=== PATIENT | female | born 2000 | race Caucasian/White ===

== ENCOUNTER → 2021-06-29 13:46 | Outpatient (CLI) | payer BC, SELFPAY ==
--- NOTE | ~2021-06-29 | US_ITS ---
EXAMINATION: US pelvic complete w TV DATE: 06/29/2021 14:13 INDICATION: Irregular periods TECHNIQUE: Multiple transabdominal and endovaginal sonographic images of the pelvis were obtained. COMPARISON: None. FINDINGS: The uterus measures 8.3 x 3.6 x 4.5 cm. The endometrial complex measures 3 mm in thickness. The righ t ovary measures 3.6 x 2.6 x 2.1 cm. The left ovary measures 3.3 x 2.1 x 3.2 cm. There are a few subc entimeter follicles at both ovaries with dominant 1.9 x 1.2 x 2.2 cm anechoic follicle in the right o vary. After flow identified in both ovaries on color Doppler. There is no free fluid in the pelvis. IMPRESSION: 1. Normal pelvic ultrasound. Reviewed, dictated and finalized at location A.
== END ==
PROVIDERS: Visit Provider Internal Medicine Endocrinology, Diabetes & Metabolism
DX: N92.6 Irregular menstruation, unspecified (principal)
CPT/HCPCS: 76830; 76856

== ENCOUNTER 2021-10-22 16:25 | Emergency (ER) | payer BC, SELFPAY ==
[2021-10-22 16:37] VITALS: BP 116/49; PULSE 75; RESP 18; TEMP 37.8; O2SAT 100
--- NOTE | 2021-10-22 16:49 | ED.ABDPAIN ---
HPI - Abdominal Pain General Chief Complaint: Abdominal Pain Stated Complaint: Abdominal Pain Time Seen by Provider: 10/22/21 16:50 Source: patient and RN notes reviewed Mode of arrival: ambulatory Limitations: no limitations History of Present Illness HPI narrative: 21-year-old female with a history of eosinophilic esophagitis, presented for complaints of generalized abdominal pain for 3 days. Pain is constant, sharp and stabbing. She denies associated nausea, vomiting, diarrhea, constipation, hematochezia, urinary complaints, vaginal discharge, fevers or chills. She denies concerns for STD, states she was tested approximately 2 weeks ago. Endorses LMP 2 weeks ago. Follows with GI in [place]. Last endoscopy and esophageal dilatation 09/2021. Related Data Allergies Allergy/AdvReac Type Severity Reaction Status Date / Time Penicillins Allergy Intermediate Rash Verified 10/22/21 16:51 Review of Systems Review of Systems: CONSTITUTIONAL: Denies body aches, fever, chills ENT: Denies rhinorrhea, congestion CARDIOVASCULAR: Denies chest pain, palpitations, or edema. RESPIRATORY: Denies cough or dyspnea. GASTROINTESTINAL: Endorses abdominal pain, Denies hematochezia, melena, hematemesis, nausea, vomiting, diarrhea. GENITOURINARY: Denies dysuria, hematuria, or CVA tenderness. SKIN: Denies rash, itching, or wounds. MUSCULOSKELETAL: Denies back pain, joint pain, or myalgia. NEUROLOGIC: Denies headache, numbness, tingling, or weakness. All systems reviewed & are unremarkable except as noted in HPI and below PMFSH Comments At time of signature, I have reviewed and agree with nursing past medical, surgical, social and family history unless otherwise noted. Please see nursing chart for further information. There is no relevant family history pertinent to the presenting complaint Exam Narrative: GENERAL: Well-appearing EYES: EOMI. Conjunctivae normal. ENT: Mucous membranes pink and moist. CHEST: Clear to auscultation. HEART: Regular rate and rhythm. ABDOMEN: abd soft, nondistended, normal active bowel sounds. diffusely tender abdomen, wincing with palpation across mid abdomen. Pain when laying back. No rebound tenderness or asymmetry EXTREMITIES: No edema. SKIN: Warm, dry, no rash. Capillary refill normal. Normal skin turgor. NEURO: No focal deficits. Alert and oriented x3. PSYCH: Normal affect. Course Course Emergency Course: Patient is aware of diagnosis, understands and agrees to treatment plan. Anticipatory guidance given. Portions of this record may have been created with voice recognition software Level of Care: Express Care Visit Vital Signs Vital signs: Vital Signs Temperature 100.0 F H 10/22/21 16:37 Pulse Rate 75 10/22/21 16:37 Respiratory Rate 18 10/22/21 16:37 Blood Pressure 116/49 L 10/22/21 16:37 Pulse Oximetry 100 10/22/21 16:37 Oxygen Delivery Room Air 10/22/21 16:37 Temperature 100.0 F H 10/22/21 16:37 Pulse Rate 75 10/22/21 16:37 Respiratory Rate 18 10/22/21 16:37 Blood Pressure 116/49 L 10/22/21 16:37 Pulse Oximetry 100 10/22/21 16:37 Oxygen Delivery Room Air 10/22/21 16:37 Transfer Transfered to: [facility] Transportation: Other (private vehicle) Transfer rationale: Pt is agreeable to transfer to ER for further evaluation of abdominal pain. Requests transfer to [facility] via private vehicle. Risks of transportation reviewed with pt including injury, worsening of condition and . v/u. Visitor will be driving pt; Report called to [facility], spoke with Rachana HUNTER, accepting physician. Pt is in stable condition at time of transfer. Advised to remain NPO and go directly to the hospital. MDM - Abdominal Pain MDM Narrative Medical decision making narrative: Urine shows trace blood. Given pt's medical history, current complaints combined with PE, she is advised to go to ER for further evaluation of abdominal pain. Agreeable at this time.
== END 2021-10-22 17:24 | disposition short-term general hospital (02) ==
PROVIDERS: Emergency Provider Nurse Practitioner Family; PCP Student in an Organized Health Care Education/Training Program
DX: R10.9 Unspecified abdominal pain (principal); J45.909 Unspecified asthma, uncomplicated; F41.9 Anxiety disorder, unspecified
CPT/HCPCS: 81003; 99212; G0463

== ENCOUNTER 2021-10-22 17:37 | Emergency (ER) | payer BC, SELFPAY ==
--- NOTE | ~2021-10-22 | US_ITS ---
EXAMINATION: US OB <=14 wk fetus w TV INDICATION: Lower abdominal pain. Beta 194.28. LMP 10/13/2021. TECHNIQUE: Sonography of the pelvis was performed by transabdominal and transvaginal techniques. COMPARISON: None. RESULT: Uterus: - Orientation: Anteverted - Size: 7.6 x 4.1 x 5.6 cm - Myometrium: Homogeneous echogenicity. Endometrial complex measures 1 cm. Gestation: - Intrauterine gestational sac: Not seen Right ovary: - Size : 3.8 x 2.2 x 2.1 cm - Normal sonographic appearance with physiologic follicles and simple cyst. Vascular flow is pr esent. Left ovary: - Size: 4.4 x 3.1 x 2.6 cm - Normal sonographic appearance with physiologic follicles and simple cyst. Vascular flow is pr esent. Pelvis free fluid: Moderate volume free pelvic fluid in the anterior and posterior cul-de-sac as well as the left adnexa and to a lesser extent the right adnexa. Echogenic, somewhat mobile debris in the left adnexa. IMPRESSION: 1. Positive test with no intrauterine gestational sac visualized. Findings represent pregn michele of unknown location. Differential diagnosis includes early normal, failed early, or ectopic pre gnancy. Recommend follow-up serial beta-hCG values. Ultrasound follow-up should be considered as cl inically warranted. 2. Moderate volume pelvic fluid, containing proteinaceous or hemorrhagic debris which could obscure o r possibly represent products of conception, therefore ruptured ectopic is not excluded. Reviewed, dictated and finalized at location K. IMPRESSION: 1. Positive test with no intrauterine gestational sac visualized. Fi ndings represent of unknown location. Differential diagnosis include s early normal, failed early, or ectopic . Recommend follow-up serial beta-hCG values. Ultrasound follow-up should be considered as clinically lucina anted. 2. Moderate volume pelvic fluid, containing proteinaceous or hemorrhagic debris which could obscure or possibly represent products of conception, therefore ru ptured ectopic is not excluded.
[2021-10-22 17:44] VITALS: BP 117/76; PULSE 90; RESP 16; TEMP 36.9; O2SAT 99
[2021-10-22 18:24] LABS: Basophils Absolute Auto 0.1 K/mm3 (0.0-0.1); Basophils Percent Auto 0.7 % (0.2-1.2); Eosinophils Percent Auto 0.5 % (0-4.4); Hematocrit 38.7 % (37.0-47.0); Hemoglobin 12.5 g/dL (12.0-15.0); Immature Granulocyte Absolute 0.01 K/mm3 (0.00-0.031); Immature Granulocyte Percent A 0.1 % (0-0.5); Lymphocytes Absolute Auto 1.69 K/mm3 (0.9-3.2); Lymphocytes Percent Auto 22.6 % (18.3-44.2); Mean Corpuscular HGB Conc 32.3 g/dl (32-36); Mean Corpuscular Hemoglobin 30.3 pg (26-34); Mean Corpuscular Volume 93.7 fl (80-100); Mean Platelet Volume 8.8 fl (7.4-10.4); Monocytes Absolute Auto 0.5 K/mm3 (0.1-0.6); Monocytes Percent Auto 6.6 % (2.6-8.5); Neutrophils Absolute Auto 5.2 K/mm3 (1.3-6.7); Neutrophils Percent Auto 69.5 % (45.5-73.1); Platelet Count Result 248 k/mm3 (150-375); Red Blood Count 4.13 M/mm3 (4.2-5.4); Red Cell Distribution Width 12.3 % (11.5-14.5); White Blood Count 7.5 K/mm3 (4.5-10.0)
[2021-10-22 18:31] LABS: Bacteria Urine Trace /hpf; Mucus Urine Rare /lpf; RBC Urine 0-2 /hpf (0-2); Squamous Epithelial Cell Urine Moderate /hpf (Few); WBC Urine 0-3 /hpf
[2021-10-22 18:33] LABS: Alanine Aminotransferase 12 U/L (6-35); Albumin Level 4.4 g/dL (3.5-5.1); Alkaline Phosphatase 43 U/L (38-126); Anion Gap 4 mmol/L (8-16); Aspartate Amino Transferase 21 U/L (14-36); Bilirubin,Total 0.8 mg/dL (0.2-1.3); Blood Urea Nitrogen 7 mg/dL (7-17); Calcium 8.8 mg/dL (8.4-10.2); Carbon Dioxide 27 mmol/L (22-30); Chloride 104 mmol/L (98-107); Estimated CRCL calculation 111 ml/min; Estimated Glomerular Filt Rate > 60; Glucose 87 mg/dL (65-110); Lipase 38 U/L (23-300); Potassium 3.9 mmol/L (3.4-5.0); Sodium 135 mmol/L (137-145)
[2021-10-22 18:43] LABS: Appearance Urine Clear (Clear); Bilirubin Urine Negative (Negative); Color Urine Yellow (Yellow); Glucose Urine UA Negative (Negative); Ketones Urine 1+ mg/dL (Negative); Leukocyte Esterase Ur Negative LEU/UL (Negative); Nitrate Urine Negative (Negative); Protein Urine Negative (Negative); Urobilinogen Urine 0.2 mg/dL (<2.0); pH Urine 8.5 (5.0-9.0)
[2021-10-22 18:46] LABS: Add Urine Microscopic? YES; Blood Urine Trace (Negative)
[2021-10-22 19:07] VITALS: PULSE 82; RESP 16; O2SAT 100
--- NOTE | 2021-10-22 19:18 | PC.NURSE ---
Assumed care of pt at this time. Pt alert and upright on stretcher, family at bedside
[2021-10-22 19:19] VITALS: BP 111/65
[2021-10-22 19:57] LABS: Beta HCG Quantitative 194.28 mIU/ML
--- NOTE | 2021-10-22 20:22 | ED.ABDPAIN ---
HPI - Abdominal Pain General Chief Complaint: Abdominal Pain Stated Complaint: Abdominal Pain Time Seen by Provider: 10/22/21 19:16 Source: patient Mode of arrival: ambulatory Limitations: no limitations History of Present Illness HPI narrative: This is a 21-year-old female that presents to the emergency department for lower abdominal pain. Present over the last couple of days. Reports the pain is constant and sharp in nature. She was seen at urgent care and sent here for further evaluation. Denies fever, vomiting, dysuria, hematuria. Related Data Home Medications Medication Instructions Recorded Confirmed budesonide 1 mg/2 mL suspension 2 ml inhalation Q4-8H PRN 10/22/21 10/22/21 for nebulization difficulty breathing cetirizine 10 mg tablet (Zyrtec) 10 mg PO DAILY 10/22/21 10/22/21 clonazepam 0.5 mg disintegrating 1 tablet PO DAILY 10/22/21 10/22/21 tablet fluticasone propionate 220 1 inh inhalation DAILY 10/22/21 10/22/21 mcg/actuation HFA aerosol inhaler (Flovent HFA) fluticasone propionate 50 1 ea intranasal DAILY 10/22/21 10/22/21 mcg/actuation nasal spray,suspension hydroxyzine HCl 25 mg tablet 25 tablet PO DAILY 10/22/21 10/22/21 lamotrigine 100 mg disintegrating 1 tablet PO DAILY 10/22/21 10/22/21 tablet lansoprazole 30 mg delayed 1 tablet PO DAILY 10/22/21 10/22/21 release,disintegrating tablet spironolactone 100 mg tablet 1 tablet PO DAILY 10/22/21 10/22/21 sucralfate 100 mg/mL oral 1 ml PO DAILY 10/22/21 10/22/21 suspension Allergies Allergy/AdvReac Type Severity Reaction Status Date / Time Penicillins Allergy Intermediate Rash Verified 10/22/21 17:46 Review of Systems Review of Systems: CONSTITUTIONAL: Denies fever GASTROINTESTINAL: Reports abdominal pain. Denies nausea, vomiting, or diarrhea. GENITOURINARY: Denies dysuria or hematuria. All systems reviewed & are unremarkable except as noted in HPI and below PMFSH Past Medical History Medical History (Updated 10/22/21 @ 23:17 by Sade Camacho PA-C) Eosinophilic esophagitis Social History Social History (Updated 10/22/21 @ 20:24 by Sade Camacho PA-C) Substance use: never Exam Narrative: GENERAL: Well-appearing, well-nourished, and in no acute distress. HEAD: Normocephalic, atraumatic. EYES: EOMI. CHEST: Clear to auscultation. No respiratory distress. No wheezes rales or rhonchi HEART: Regular rate and rhythm. No murmur heard. Normal peripheral pulses. ABDOMEN: Soft, nondistended, normal active bowel sounds. Mild tenderness to palpation about the lower abdomen, without guarding EXTREMITIES: Normal range of motion. No edema. SKIN: Warm, dry, no rash. NEURO: No focal deficits. Alert and oriented x3. PSYCH: Normal mood and affect Course Consultations Consultation #1: Spoke with Dr. Alvarez about patient and workup. Recommends repeat quantitative beta-hCG in 48 hours and follow-up in clinic Date: 10/22/21 Time: 23:13 Vital Signs Vital signs: Vital Signs Temperature 98.4 F 10/22/21 17:44 Pulse Rate 90 10/22/21 17:44 Respiratory Rate 16 10/22/21 17:44 Blood Pressure 117/76 10/22/21 17:44 Pulse Oximetry 99 10/22/21 17:44 Oxygen Delivery Room Air 10/22/21 17:44 Temperature 98.4 F 10/22/21 17:44 Pulse Rate 68 10/22/21 22:12 Respiratory Rate 16 10/22/21 22:12 Blood Pressure 101/66 10/22/21 22:12 Pulse Oximetry 100 10/22/21 22:12 Oxygen Delivery Room Air 10/22/21 17:44 MDM - Abdominal Pain MDM Narrative Medical decision making narrative: Patient presents to the emergency department for lower abdominal pain. Ongoing over the last couple of days. She is afebrile and nontoxic-appearing. Her vitals are stable. CBC metabolic panel without concerning findings. Lipase is normal. UA without evidence of infection. Bedside test is positive. Quantitative beta-hCG 194.28. Obstetrics ultrasound shows no intrauterine gestational sac. Findings represen
--- NOTE | 2021-10-22 21:17 | PC.NURSE ---
Pt in ultrasound at this time
[2021-10-22 22:12] VITALS: BP 101/66; PULSE 68; RESP 16; O2SAT 100
== END 2021-10-22 23:44 | disposition home or self-care (01) ==
PROVIDERS: Emergency Medicine; Physician Assistant; Emergency Provider Emergency Medicine; PCP Student in an Organized Health Care Education/Training Program
DX: O26.891 Other specified pregnancy related conditions, first trimester (principal); R10.2 Pelvic and perineal pain; Z3A.01 Less than 8 weeks gestation of pregnancy
CPT/HCPCS: 36415; 76801; 76817; 80053; 81001; 81003; 81025; 83690; 84702; 85025; 85461; 96365; 99284; J0131

== ENCOUNTER 2021-10-24 09:55 | Outpatient (CLI) | payer BC, SELFPAY ==
[2021-10-24 11:27] LABS: Beta HCG Quantitative 256.57 mIU/ML
== END 2021-10-24 09:56 | disposition home or self-care (01) ==
LOC: ANHLAB 09:57
PROVIDERS: PCP Student in an Organized Health Care Education/Training Program; Visit Provider Physician Assistant
DX: O26.899 Other specified pregnancy related conditions, unspecified trimester (principal); Z3A.00 Weeks of gestation of pregnancy not specified
CPT/HCPCS: 36415; 84702